=== PATIENT | female | born 1985 | race Caucasian/White ===

== ENCOUNTER 2016-04-09 17:40 | Emergency (ER) | payer OTHER ==
[~2016-04-09] VITALS: Ht 165.1 cm; Wt 106.6 kg
[~2016-04-09 17:40] MED LIST: ANTIVERT25 MG PO; CLEOCIN300 MG PO; ERYTHROMYCIN O3.5 GM BOTH EYES; IBUPROFEN800 MG PO; LEVOTHROID,S0.075 MG PO; NO HOME MEDS; NOHOMEMEDS; NORCO 5/3251 TABLET PO; PEN-VEE K,VEET500 MG PO; PENICILLIN V P500 MG PO; PERCOCET 5/31 TABLET PO; SPRINTEC1 EACH PO; TRAMADOL HCL50 MG PO; VICODIN,LORT1 TABLET PO; XANAX0.5 MG PO
[2016-04-09 18:44] LABS: HEMATOCRIT 33.9 % (36.0-46.0); MCH 29.5 PG (29.0-34.0); MCHC 33.6 G/DL (30.0-36.0); MCV 87.8 FL (83-99); MEAN PLAT.VOLUME 11.7 uM^3 (9.5-12.4); PLATELET COUNT 193 K/uL (156-360); RBC DIS.WIDTH-CV 14.5 % (11.8-14.6); RBC DIS.WIDTH-SD 45.2 % (39-53); RED BLOOD COUNT 3.86 M/uL (3.80-5.20); WHITE BLOOD COUNT 7.8 K/uL (4.1-10.2)
[2016-04-09 19:01] LABS: CHLORIDE 108 mEq/L (99-109); POTASSIUM 3.7 mEq/L (3.7-5.4); SODIUM 138 mEq/L (136-147)
[2016-04-09 19:03] LABS: GLUCOSE 99 mg/dL (70-99)
[2016-04-09 19:04] LABS: ANION GAP 8 MEQ/L (2-14)
[2016-04-09 19:05] LABS: TROP-I INTERPRETATION NEGATIVE; TROPONIN-I < 0.01 ng/mL (0.0-0.30)
[2016-04-09 19:07] LABS: GFR ESTIMATE (CALCULATED) > 59 mL/min/; UREA NITROGEN (BUN) 5 mg/dL (9-23)
[2016-04-09 20:56] VITALS: BP 146/86
== END 2016-04-09 20:57 | disposition home or self-care (01) ==
LOC: EME 17:40
DX: J06.9 Acute upper respiratory infection, unspecified (principal); J45.909 Unspecified asthma, uncomplicated; K21.9 Gastro-esophageal reflux disease without esophagitis; Z87.442 Personal history of urinary calculi; Z87.891 Personal history of nicotine dependence
CPT/HCPCS: 71020; 80048; 84484; 85027; 93005; 99281; 99284

== ENCOUNTER 2017-02-18 11:05 | Emergency (ER) | payer OTHER ==
[~2017-02-18] VITALS: Ht 165.1 cm; Wt 112.4 kg
[2017-02-18] MEDS ORDERED: PEN-VEE K,VEET500 MG PO (13:41)
[2017-02-18 13:49] VITALS: BP 144/95
[2017-02-19] MEDS ORDERED: ZOFRAN ODT4 MG PO (08:56)
[2017-02-19] MEDS ORDERED: NAPROXEN500 MG PO (08:58)
[2017-02-20] MEDS ORDERED: IRON325 M1 PO (10:30)
== END 2017-02-18 13:56 | disposition home or self-care (01) ==
LOC: EME 11:05
DX: K02.9 Dental caries, unspecified (principal); K21.9 Gastro-esophageal reflux disease without esophagitis; J45.909 Unspecified asthma, uncomplicated; F32.9 Major depressive disorder, single episode, unspecified; F41.9 Anxiety disorder, unspecified; Z87.891 Personal history of nicotine dependence; Z87.442 Personal history of urinary calculi; Z88.2 Allergy status to sulfonamides
CPT/HCPCS: 99281; 99284

== ENCOUNTER 2017-02-19 05:17 | Emergency (ER) | payer OTHER ==
[~2017-02-19] VITALS: Ht 165.1 cm; Wt 111.9 kg
[2017-02-19 07:35] LABS: BASOPHIL (%) 0.3 % (0-1); EOSINOPHIL (%) 0.6 % (0-5); EOSINOPHIL COUNT 0.1 K/uL (0-0.3); HEMATOCRIT 38.2 % (36.0-46.0); HEMOGLOBIN 13.1 G/DL (11.9-15.5); IMMATURE GRANULOCYTE (%) 0.4 % (0.0-0.7); LYMPHOCYTE (%) 19.2 % (15-42); LYMPHOCYTE COUNT 2.4 K/uL (1.0-2.8); MCH 28.9 PG (29.0-34.0); MCHC 34.3 G/DL (30.0-36.0); MCV 84.1 FL (83-99); MONOCYTE (%) 8.2 % (3-12); NEUTROPHIL (%) 71.3 % (45-76); NEUTROPHIL COUNT 8.7 K/uL (1.8-6.4); PLATELET COUNT 254 K/uL (156-360); RBC DIS.WIDTH-CV 12.9 % (11.8-14.6); RBC DIS.WIDTH-SD 39.5 % (39-53); RED BLOOD COUNT 4.54 M/uL (3.80-5.20); WHITE BLOOD COUNT 12.3 K/uL (4.1-10.2)
[2017-02-19 08:09] LABS: ALBUMIN 4.3 G/DL (3.2-4.8); ALKALINE PHOSPHATASE 97 IU/L (3-129); ALT (GPT) 22 IU/L (3-49); AST (GOT) 13 IU/L (2-34); CHLORIDE 108 MEQ/L (99-109); CREATININE 0.6 MG/DL (0.6-1.3); GFR ESTIMATE (CALCULATED) > 59 mL/min/; GLUCOSE 94 mg/dL (70-99); POTASSIUM 3.7 MEQ/L (3.7-5.4); SODIUM 139 MEQ/L (136-147); TOTAL BILIRUBIN 0.4 MG/DL (0.0-1.0); TOTAL PROTEIN 8.3 G/DL (6.4-8.3); UREA NITROGEN (BUN) 8 mg/dL (9-23)
[2017-02-19] MEDS ORDERED: ZOFRAN ODT4 MG PO (08:56)
[2017-02-19] MEDS ORDERED: NAPROXEN500 MG PO (08:58)
[2017-02-19 10:01] VITALS: BP 131/89
[2017-02-20] MEDS ORDERED: IRON325 M1 PO (10:30)
== END 2017-02-19 10:04 | disposition home or self-care (01) ==
LOC: EME 05:17
PROVIDERS: Physician Assistant
DX: L03.211 Cellulitis of face (principal); K02.9 Dental caries, unspecified; Z88.2 Allergy status to sulfonamides
CPT/HCPCS: 70487; 80053; 83605; 85025; 87040; 99281; 99285; J0696; J1885; J2405; J7120

== ENCOUNTER 2017-03-16 14:23 | Emergency (ER) | payer OTHER ==
[~2017-03-16 14:23] MED LIST changes: +IRON325 M1 PO; +NAPROXEN500 MG PO; +ZOFRAN ODT4 MG PO
== END 2017-03-16 16:18 | disposition left against medical advice (07) ==
LOC: EME 14:23
DX: R10.2 Pelvic and perineal pain (principal); Z53.21 Procedure and treatment not carried out due to patient leaving prior to being seen by health care provider

== ENCOUNTER 2017-07-13 07:26 | Emergency (ER) | payer OTHER ==
[~2017-07-13] VITALS: Ht 162.6 cm; Wt 108.7 kg
[2017-07-13] MEDS ORDERED: AUGMENTIN875 MG PO (08:10)
[2017-07-13 08:16] VITALS: BP 121/96
== END 2017-07-13 08:21 | disposition home or self-care (01) ==
LOC: EME 07:26
DX: K02.9 Dental caries, unspecified (principal); L03.211 Cellulitis of face; J01.00 Acute maxillary sinusitis, unspecified; D69.3 Immune thrombocytopenic purpura; J45.909 Unspecified asthma, uncomplicated; K21.9 Gastro-esophageal reflux disease without esophagitis; F41.9 Anxiety disorder, unspecified; F32.9 Major depressive disorder, single episode, unspecified; Z87.442 Personal history of urinary calculi; Z88.2 Allergy status to sulfonamides
CPT/HCPCS: 99281; 99285